=== PATIENT | male | born 1955 | race Caucasian/White ===

== ENCOUNTER 2019-07-08 09:29 | Day surgery (SDC) | payer OTHER ==
[2019-07-07 15:08] VITALS: BMI 56.7
--- NOTE | 2019-07-08 08:40 | P.GSHP ---
History of Present Illness H&P Date: 07/08/19 CHIEF COMPLAINT: Colon screen HISTORY OF PRESENT ILLNESS: The patient is a 64-year-old male who presents for colon screen. Lower endoscopy was offered for further evaluation and management. PAST MEDICAL HISTORY: Please see list. PAST SURGICAL HISTORY: Please see list. MEDICATIONS: Please see list. ALLERGIES: Please see list. SOCIAL HISTORY: No illicit drug use FAMILY HISTORY: No reports of Crohn disease or ulcerative colitis. REVIEW OF ORGAN SYSTEMS: CONSTITUTIONAL: No reports of fevers or chills. PHYSICAL EXAM: VITAL SIGNS: Stable GENERAL: Well-developed pleasant in no acute distress. HEENT: No scleral icterus. Extraocular movements grossly intact. Moist buccal mucosa. NECK: Supple without lymphadenopathy. CHEST: Unlabored respirations. Equal bilateral excursions. CARDIOVASCULAR: Regular rate and rhythm. Distal 2+ pulses. ABDOMEN: Soft, nontender, nondistended. MUSCULOSKELETAL: No clubbing, cyanosis, or edema. ASSESSMENT: 1. Colon screen. PLAN: 1. Recommend proceeding with a lower endoscopy Past Medical History Past Medical History: Chest Pain / Angina, Eye Disorder, Hypertension, Osteoarthritis (OA), Sleep Apnea/CPAP/BIPAP Additional Past Medical History / Comment(s): vertigo, tumor rt ear,enlarged heart,"irreg. heart rate" uses cpap, hx mastoid infections,hemorrhoids, polyps,hypoglycemia, umbilical hernia, rectal discharge, hx. 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 for glaucoma Past Anesthesia/Blood Transfusion Reactions: Motion Sickness Additional Past Anesthesia/Blood Transfusion Reaction / Comment(s): no hx blood transfusion Smoking Status: Never smoker - Past Family History Father Family Medical History: Cancer Additional Family Medical History / Comment(s): liver Mother Additional Family Medical History / Comment(s): abdominal aneurysm Medications and Allergies Home Medications Medication Instructions Recorded Confirmed Type Aspirin 81 mg PO DAILY 03/30/16 07/07/19 History Cholecalciferol [Vitamin D3] 5,000 unit PO DAILY 03/30/16 07/07/19 History Gemfibrozil [Lopid] 600 mg PO DAILY 03/30/16 07/07/19 History Verapamil HCl 120 mg PO HS 03/30/16 07/07/19 History Furosemide [Lasix] 20 mg PO DAILY PRN 07/07/19 07/07/19 History Losartan Potassium 100 mg PO DAILY 07/07/19 07/07/19 History Wellbutrin(Unknown Dose) 1 tab PO DAILY 07/07/19 History Allergies Allergy/AdvReac Type Severity Reaction Status Date / Time Penicillins Allergy Rash/Hives Verified 07/07/19 14:41 oatmeal Allergy Unknown Uncoded 07/07/19 14:41
[~2019-07-08 09:29] MED LIST: LACTATED RINGERS 1,000 ML IV SCH
[2019-07-08 10:42] VITALS: TEMP 98.3
[2019-07-08 10:51] LABS: Glucose,Whole Blood 129 mg/dL (75-99)
[2019-07-08] MEDS ORDERED: MIDAZOLAM 2 MG/2 ML VIAL ONE (11:25)
[2019-07-08] MEDS ORDERED: fentaNYL (PF) 50 MCG/ML 2 ML AMP ONE (11:25)
[2019-07-08] MEDS ORDERED: KETAMINE 10 MG/ML 20 ML VIAL ONE (11:25)
[2019-07-08] MEDS ORDERED: LIDOCAINE 1% INJ 10MG/ML (20 ML MDV) ONE (11:25)
[2019-07-08] MEDS ORDERED: PROPOFOL 10 MG/ML 20 ML VIAL IV ONE (11:25)
--- NOTE | 2019-07-08 12:02 | P.PCN ---
Date of Procedure: 07/08/19 Description of Procedure: PREOPERATIVE DIAGNOSIS: Colonoscopy screening POSTOPERATIVE DIAGNOSIS: Colonoscopy screening Multiple tubular adenomas throughout the colon. Long and redundant sigmoid colon OPERATION: Colonoscopy to the ascending colon Colonoscopy with multiple hot snare polypectomies SURGEON: Meg Collado MD. ANESTHESIA: MAC. INDICATIONS: The patient is a 64-year-old male who presents for colonoscopy screening. Benefits and risks were described and informed consent was obtained. DESCRIPTION OF PROCEDURE: The patient had undergone Suprep. He had been brought into the operating room and laid in the left lateral decubitus position. After adequate intravenous sedation, the rectum was examined with 2% lidocaine jelly. External hemorrhoids were encountered. The rectal tone was within normal limits. No lesions were palpated in the rectal vault. An Olympus colonoscope was advanced until the ileocecal valve and appendiceal orifice were clearly viewed. The prep was fair with visualization of the mucosal folds. The scope was removed with visualization of each mucosal fold. No scattered diverticulosis was encountered. Multiple colonic polyps were found and snare polypectomy. No evidence of focal colitis was found. Retroflexion of the scope demonstrated grade 1 internal hemorrhoids without active bleeding or inflammation. The colon was desufflated. The patient had tolerated the procedure well. Withdrawal time was over 6 minutes. FINDINGS: Aronchick preparation quality scale 2 (1-5) Internal hemorrhoids, grade 1 External hemorrhoids, grade 2. No arteriovenous malformations. Highly redundant long colon beyond the length of the scope Removal of 4 polyps: - Snare polypectomy hepatic flexure, 4 mm flat villous adenoma polyp, removed but not retrieved - Snare polypectomy proximal transverse colon, 6 mm flat villous adenoma polyp. - Snare polypectomy 8 and 6 mm flat villous adenoma polyp, mid transverse colon No focal colitis. RECOMMENDATIONS: Given severity of tubular adenomas, recommend repeat colonoscopy 3 years, 2021. Plan - Discharge Summary Discharge Rx Participant: No New Discharge Prescriptions: No Action Cholecalciferol [Vitamin D3] 5,000 unit PO DAILY Gemfibrozil [Lopid] 600 mg PO DAILY Aspirin 81 mg PO DAILY Verapamil HCl 120 mg PO HS Furosemide [Lasix] 20 mg PO DAILY PRN PRN Reason: Edema Wellbutrin(Unknown Dose) 1 tab PO DAILY Losartan Potassium 100 mg PO DAILY Discharge Medication List Aspirin 81 mg PO DAILY 03/30/16 [History] Cholecalciferol [Vitamin D3] 5,000 unit PO DAILY 03/30/16 [History] Gemfibrozil [Lopid] 600 mg PO DAILY 03/30/16 [History] Verapamil HCl 120 mg PO HS 03/30/16 [History] Furosemide [Lasix] 20 mg PO DAILY PRN 07/07/19 [History] Losartan Potassium 100 mg PO DAILY 07/07/19 [History] Wellbutrin(Unknown Dose) 1 tab PO DAILY 07/07/19 [History] Follow up Appointment(s)/Referral(s): Meg Collado MD [STAFF PHYSICIAN] - As Needed Patient Instructions/Handouts: Colorectal Polyps (GEN) Activity/Diet/Wound Care/Special Instructions: Repeat colonoscopy 3 years, 2021 Discharge Disposition: HOME SELF-CARE
[2019-07-08 12:10] VITALS: BP 133/82; PULSE 70; RESP 18
== END 2019-07-08 12:41 | disposition home or self-care (01) ==
LOC: ORWHC2ENDO 09:29
PROVIDERS: ATTEND Surgery Plastic and Reconstructive Surgery
DX: Z12.11 Encounter for screening for malignant neoplasm of colon (principal); D12.3 Benign neoplasm of transverse colon; K63.5 Polyp of colon; Q43.8 Other specified congenital malformations of intestine; K64.0 First degree hemorrhoids; K64.1 Second degree hemorrhoids; I11.9 Hypertensive heart disease without heart failure; M19.90 Unspecified osteoarthritis, unspecified site; Z99.89 Dependence on other enabling machines and devices; Z86.19 Personal history of other infectious and parasitic diseases; E16.2 Hypoglycemia, unspecified; G47.33 Obstructive sleep apnea (adult) (pediatric); E66.01 Morbid (severe) obesity due to excess calories; Z87.19 Personal history of other diseases of the digestive system; Z86.69 Personal history of other diseases of the nervous system and sense organs; Z98.890 Other specified postprocedural states; Z80.9 Family history of malignant neoplasm, unspecified; Z79.82 Long term (current) use of aspirin; Z79.899 Other long term (current) drug therapy; Z88.0 Allergy status to penicillin; Z91.018 Allergy to other foods; Z86.79 Personal history of other diseases of the circulatory system; Z68.43 Body mass index [BMI] 50.0-59.9, adult
CPT/HCPCS: 88305; 45385; J2250; J2001; J3010; J2704

== ENCOUNTER → 2022-11-05 | Outpatient (CLI) | payer MEDICARE, OTHER ==
[~2022-11-05] MED LIST changes: -LACTATED RINGERS 1,000 ML IV SCH; +REGADENOSON 0.4 MG/5 ML SYRINGE IV PRN
== END | disposition home or self-care (01) ==
LOC: RADNMMAIN 07:38
PROVIDERS: ATTEND Internal Medicine Interventional Cardiology
DX: Z53.9 Procedure and treatment not carried out, unspecified reason (principal)

== ENCOUNTER 2023-06-14 11:11 | Day surgery (SDC) | payer MEDICARE, OTHER ==
[2023-06-14 12:54] VITALS: TEMP 97
[2023-06-14] MEDS: LACTATED RINGERS 1,000 ML IV SCH ×2 (13:07→13:13)
[2023-06-14 13:11] LABS: Glucose,Whole Blood 121 mg/dL (70-110)
[2023-06-14] MEDS ORDERED: PROPOFOL 10 MG/ML 20 ML VIAL IV ONE (13:14)
[2023-06-14] MEDS ORDERED: LIDOCAINE 2% INJ 20 MG/ML (2 ML VIAL) ONE (13:14)
--- NOTE | 2023-06-14 13:36 | P.PCN ---
Date of Procedure: 06/14/23 Procedure(s) Performed: BRIEF HISTORY: Patient is a 68-year-old pleasant white male scheduled for an elective colonoscopy as a part of evaluation of prior history of colon polyps. Last colonoscopy was 3 years ago. PROCEDURE PERFORMED: Colonoscopy snare polypectomy. PREOPERATIVE DIAGNOSIS: History of colon polyps. IV sedation per Anesthesia. PROCEDURE: After informed consent was obtained, the patient, was brought into the endoscopy unit. IV sedation was administered by Anesthesia under continuous monitoring. Digital rectal examination was normal. Initially the Olympus CF-160 flexible video colonoscope was then inserted in the rectum, gradually advanced into the cecum without any difficulty. Careful examination was performed as the scope was gradually being withdrawn. Ileocecal valve and the appendiceal orifice were visualized and appeared normal. Prep was excellent. Mucosa of the cecum a 5 mm and 7 mm cecal polyps removed by snare polypectomy. In the hepatic flexure there was a 2 mm and 1 cm polyp removed by snare polypectomy., ascending colon, transverse colon, descending colon, sigmoid colon, and rectum appeared normal. Retroflexion was performed in the rectum and no lesions were seen. The patient tolerated the procedure well. IMPRESSION: 5 mm and 7 mm cecal polyp status post polypectomy 2 mm and 1 cm hepatic flexure polyp status post polypectomy Rest of the colon appeared normal RECOMMENDATIONS: Findings of this examination were discussed with the patient as well as a family. He was advised to follow with the biopsy results. If the biopsies revealed adenoma he can have a repeat colonoscopy in 3 years.
[2023-06-14 13:53] VITALS: RESP 16
[2023-06-14 13:57] VITALS: BP 144/75; PULSE 60
== END 2023-06-14 14:15 | disposition home or self-care (01) ==
LOC: ORWHC2ENDO 11:11
PROVIDERS: ATTEND Internal Medicine Gastroenterology
DX: Z12.11 Encounter for screening for malignant neoplasm of colon (principal); K63.5 Polyp of colon; I10 Essential (primary) hypertension; I49.9 Cardiac arrhythmia, unspecified; G47.33 Obstructive sleep apnea (adult) (pediatric); Z86.010 Personal history of colon polyps; Z99.89 Dependence on other enabling machines and devices; Z79.84 Long term (current) use of oral hypoglycemic drugs; Z79.899 Other long term (current) drug therapy; Z88.0 Allergy status to penicillin; Z87.891 Personal history of nicotine dependence
CPT/HCPCS: 88305; 45385; J2704; J2001